=== PATIENT | male | born 1980 | race Caucasian/White ===

== ENCOUNTER 2024-04-25 20:05 | Emergency (ER) | payer SELFPAY ==
[~2024-04-25] VITALS: Ht 177.8 cm; Wt 85.0 kg
[2024-04-25 20:07] VITALS: BP 122/78; PULSE 98; RESP 17; TEMP 98; O2SAT 98
[2024-04-25] MEDS ORDERED: ONDANSETRON 4MG ODT PO ONE (20:15)
== END 2024-04-25 22:54 | disposition home or self-care (01) ==
LOC: ER 20:05
DX: F10.129 Alcohol abuse with intoxication, unspecified (principal); R11.2 Nausea with vomiting, unspecified; F19.90 Other psychoactive substance use, unspecified, uncomplicated; Y90.9 Presence of alcohol in blood, level not specified
CPT/HCPCS: 99283